=== PATIENT | male | born 1990 | race American Indian/Alaskan Native ===

== ENCOUNTER 2018-03-17 10:02 | Emergency (ER) | payer OTHER ==
[2018-03-17 10:13] VITALS: BP 115/73
--- NOTE | 2018-03-17 10:41 | Emergency Department Report ---
Chief Complaint: Back Pain/Injury Stated Complaint: BACK PAIN Time Seen by Provider: 03/17/18 10:28 - HPI History of Present Illness: Patient is a 27-year-old [place] male with past medical history of chronic back pain who states that pain was worse this morning. Patient states he does have an hard time standing this morning did not abated. Patient took some ibuprofen and ice feels somewhat better however his suggested he come to the emergency department. Patient has no fecal incontinence or urinary retention. There is no fever there's no erectile dysfunction. Patient has no abdominal pain chest pain shortness of breath fevers chills. - ROS Review of Systems: All systems reviewed and are negative - Exam Vital Signs: Vital Signs 03/17/18 10:11 Temperature 98.7 F Pulse Rate 84 Respiratory 16 Rate Blood Pressure 115/73 O2 Sat by Pulse 98 Oximetry Physical Exam: Brief physical exam patient has some diffuse lumbar tenderness does smell of alcohol but has normal heart and lung sounds. MSE screening note: Focused history and physical exam performed. Due to findings the following was ordered: ED Medical Decision Making - Medical Decision Making Patient has a exacerbation of chronic condition today. Patient is not medical emergency. Patient did not pay the [facility] co-pay. I have given the patient instructions to use rice therapy and continue with his ibuprofen and also referred him to Dr. Bolivar ED Disposition for MSE Clinical Impression: Chronic back pain Disposition: Z-07 MED SCREENING EXAM-LEFT Is pt being admited?: No Does the pt Need Aspirin: No Condition: Stable Instructions: RICE Therapy (ED) Referrals: HUSSEIN BOLIVAR MD [Staff Physician] - 3-5 Days [facility] [Outside] - 3-5 Days
== END 2018-03-17 10:47 | disposition left against medical advice (07) ==
LOC: ED 10:02
DX: M54.9 Dorsalgia, unspecified (principal); G89.29 Other chronic pain; Z53.21 Procedure and treatment not carried out due to patient leaving prior to being seen by health care provider

== ENCOUNTER 2019-04-27 08:07 | Emergency (ER) | payer SELFPAY ==
[2019-04-27] MEDS ORDERED: NACL 0.9% 1000 ML 1,000 ML IV ONE (08:27)
--- NOTE | 2019-04-27 08:31 | Emergency Department Report ---
HPI - General Chief Complaint: Pain General Time Seen by Provider: 04/27/19 08:19 - HPI HPI: 29-year-old -[place] male presents to the emergency department from home with a complaint of a right-sided headache that radiates down towards the neck and shoulder. He also complains of pain going down the right arm and some throat pain. This is been going on for about 48 hours, since Sunday. This is all associated with some dizziness/lightheadedness. He denies any vision change, slurred speech or any neurological deficits. He denies any chest pain, fever, vomiting but has had some nausea. He denies any past medical history. He has an occasional tobacco smoker but denies any illicit drug use. He does not have a primary care physician. No recent travel or sick contacts at home. He took some ibuprofen for his symptoms with some temporary relief. ED Past Medical Hx - Social History Smoking Status: Current Every Day Smoker Substance Use Type: None - Medications Home Medications: Home Medications Medication Instructions Recorded Confirmed Last Taken Type HYDROcodone/APAP 5-325 [[place] 1 each PO Q6HR PRN #8 tablet 04/27/19 Unknown Rx 5/325] Ibuprofen [Motrin 800 MG tab] 800 mg PO Q8HR PRN #20 tablet 04/27/19 Unknown Rx ED Review of Systems ROS: Stated complaint: FACE/BODY PAIN Other details as noted in HPI Comment: All other systems reviewed and negative Constitutional: denies: chills, fever Eyes: denies: eye pain, vision change ENT: throat pain. denies: ear pain Respiratory: denies: cough, wheezing Cardiovascular: denies: chest pain, palpitations Gastrointestinal: nausea. denies: abdominal pain, vomiting Genitourinary: denies: dysuria, discharge Musculoskeletal: arthralgia, myalgia. denies: joint swelling Skin: denies: rash, lesions Neurological: headache. denies: weakness, numbness, paresthesias Physical Exam - Physical Exam Physical Exam: GENERAL: The patient is well-developed well-nourished. HENT: Normocephalic. Atraumatic. Patient has moist mucous membranes. EYES: Extraocular motions are intact. Pupils equal reactive to light bilaterally. No nystagmus. NECK: Supple. Trachea is midline. There is some reproducible right lateral tenderness to palpation along the cervical muscles. No carotid bruits auscultated. CHEST/LUNGS: Clear to auscultation. There is no respiratory distress noted. HEART/CARDIOVASCULAR: Regular. There is no tachycardia. There is no murmur. ABDOMEN: Abdomen is soft, nontender. Patient has normal bowel sounds. There is no abdominal distention. SKIN: Skin is warm and dry. NEURO: The patient is awake, alert, and oriented. The patient is cooperative. The patient has no focal neurologic deficits. The patient has normal speech. Cranial nerves II through XII grossly intact. MUSCULOSKELETAL: There is no tenderness or deformity. There is no limitation range of motion. There is no evidence of acute injury. Muscle strength 5 out of 5 for upper and lower extremities bilaterally. ED Medical Decision Making - Lab Data Result diagrams: 04/27/19 08:33 04/27/19 08:33 - EKG Data -: EKG Interpreted by Ne EKG shows normal: sinus rhythm, axis, intervals, QRS complexes, ST-T waves Rate: normal - EKG Data When compared to previous EKG there are: previous EKG unavailable Interpretation: normal EKG - Radiology Data Radiology results: report reviewed CT head without contrast CLINICAL HISTORY: Syncope, headache FINDINGS: No previous exams available for comparison. The brain demonstrate appropriate attenuation. The ventricular system is within normal limits in size and configuration. There is no CT evidence of acute intracranial hemorrhage or significant mass effect. The visualized nasal sinuses are clear. All CT scans at this location are performed using the CT dose reduction for [employer] by means of automated exposure control. IMPRESSION: There is no CT evidence of acute intracranial process. CT cervical spine without contrast Clinical history: Neck pain, trauma. Findings: no previous exams are available for comparison. The slight reversal of the cervical lordosis without significant spondylolisthesis. There is no CT evidence of acute fracture or subluxation. The intervertebral disc spaces are fairly well-maintained without significant bony of spinal stenosis at. No prevertebral soft tissue fluid collections are identified. All CT scans at this location are performed using the CT dose reduction for [employer]RA by means of automated exposure control. IMPRESSION: There is no CT ends of acute fracture involving cervical spine. - Medical Decision Making This patient presents to the emergency department with a few days of some right- sided headache/pain going towards the right side of the face, down the anterior lateral right neck and the complaint of some right arm pain. On examination he has normal heart and lungs sound auscultation. There are no focal, motor or sensory deficits and his cranial nerves are intact. No carotid bruits noted. Labs have been unremarkable including CBC, ESR, metabolic panel, troponin. CT of the head without contrast does not show any bleed, shift, mass, ischemia, or any other acute process. CT of the cervical spine without contrast does not show any fracture, subluxation or any acute process. Patient was given a dose of pain medication and upon reevaluation he is feeling improved. Vital signs stable throughout his ED course. For all these reasons, the patient appears safe for discharge home at this time. He has been given a referral for primary care and a prescription for some pain medication. He will return to the ER with any worsening of his symptoms or any acute distress. I looked the patient up on the [employer] prescription monitoring system and he does not have any scheduled medications filled within the last 2 years in multiple states. - Differential Diagnosis tension headache, trigeminal neuralgia, temporal arteritis, migraine Critical Care Time: No Critical care attestation.: If time is entered above; I have spent that time in minutes in the direct care of this critically ill patient, excluding procedure time. ED Disposition Clinical Impression: Right arm pain, Facial pain Headache Qualifiers: Headache type: unspecified Headache chronicity pattern: unspecified pattern Intractability: not intractable Qualified Code(s): R51 - Headache Disposition: DC-01 TO HOME OR SELFCARE Is pt being admited?: No Condition: Stable Instructions: Acute Headache (ED), Arthralgia (ED) Additional Instructions: Please follow up with a primary care physician in the next few days. Return to the emergency Department with any worsening of your symptoms or any acute distress. You have been prescribed a medication that is sedating and therefore should not be taken prior to driving, working, and responsible for children and in no way should be mixed with alcohol of any quantity. Prescriptions: Ibuprofen [Motrin 800 MG tab] 800 mg PO Q8HR PRN #20 tablet PRN Reason: Pain , Severe (7-10) HYDROcodone/APAP 5-325 [[place] 5/325] 1 each PO Q6HR PRN #8 tablet PRN Reason: Pain Referrals: MARY ANNE SMITH MD [Staff Physician] - 3-5 Days [facility] [Outside] - 3-5 Days Forms: Work/School Release Form(ED) Time of Disposition: 11:40
[2019-04-27 08:59] LABS: Basophils % (Auto) 0.5 % (0.0-1.8); Eosinophils # (Auto) 0.1 K/mm3 (0.0-0.4); Eosinophils % (Auto) 0.7 % (0.0-4.3); Hematocrit 45.8 % (35.5-45.6); Hemoglobin 15.8 gm/dl (11.8-15.2); Lymphocytes # (Auto) 1.4 K/mm3 (1.2-5.4); Lymphocytes % (Auto) 14.2 % (13.4-35.0); Mean Corpuscular HGB Conc 35 % (32-34); Mean Corpuscular Volume 98 fl (84-94); Monocytes # (Auto) 1.3 K/mm3 (0.0-0.8); Monocytes % (Auto) 13.5 % (0.0-7.3); Platelet Count 199 K/mm3 (140-440); Red Blood Count 4.67 M/mm3 (3.65-5.03); Red Cell Distribution Width 12.9 % (13.2-15.2)
[2019-04-27 09:20] LABS: Alanine Aminotransferase 13 units/L (7-56); Albumin 4.6 g/dL (3.9-5); BUN/Creatinine Ratio 7; Blood Urea Nitrogen 6 mg/dL (9-20); Calcium 9.6 mg/dL (8.4-10.2); Hemolysis Index 8
[2019-04-27] MEDS ORDERED: MORPHINE IV ONE (10:22)
[2019-04-27 10:31] LABS: Erythrocyte Sedimentation Rate 7 mm/Hr (0-20)
--- NOTE | 2019-04-27 10:45 | Cat Scan Report ---
CT cervical spine without contrast Clinical history: Neck pain, trauma. Findings a colon no previous exams are available for comparison. The slight reversal of the cervical lordosis without significant spondylolisthesis. There is no CT evidence of acute fracture or subluxat ion. The intervertebral disc spaces are fairly well-maintained without significant bony of spinal kristen nosis at. No prevertebral soft tissue fluid collections are identified. All CT scans at this location are performed using the CT dose reduction for [employer] by means of automated exposure control. IMPRESSION: There is no CT ends of acute fracture involving cervical spine. Signer Name: Taj Braxton MD Signed: 04/27/2019 10:41 AM Workstation Name: [id number]
--- NOTE | 2019-04-27 10:48 | Cat Scan Report ---
CT head without contrast CLINICAL HISTORY: Syncope, headache FINDINGS: No previous exams available for comparison. The brain demonstrate appropriate attenuation. The ventricular system is within normal limits in size and configuration. There is no CT evidence of acute intracranial hemorrhage or significant mass effect. The visualized nasal sinuses are clear. All CT scans at this location are performed using the CT dose reduction for [employer] by means of automated exposure control. IMPRESSION: There is no CT evidence of acute intracranial process. Signer Name: Taj Braxton MD Signed: 04/27/2019 10:44 AM Workstation Name: [id number]
[2019-04-27] MEDS ORDERED: TORADOL IV ONE (10:58)
[2019-04-27 11:16] VITALS: BP 149/80
== END 2019-04-27 11:57 | disposition home or self-care (01) ==
LOC: ED 08:07
DX: M79.601 Pain in right arm (principal); R51 Headache; F17.200 Nicotine dependence, unspecified, uncomplicated; Z79.899 Other long term (current) drug therapy
CPT/HCPCS: 36415; 70450; 72125; 80053; 84443; 85025; 85652; 93005; 93010; 96361; 96374; 96375; 99284; J1885; J2270; J7030; 80320; G0480